=== PATIENT | female | born 2000 | race Caucasian/White ===

== ENCOUNTER → 2018-04-13 | Outpatient (CLI) | payer BC, OTHER ==
--- NOTE | 2018-04-13 14:18 | KCIC ---
MRI left foot without contrast dated 04/13/2018 1:15 PM Indication: Left foot pain history of sports injury 3 weeks ago pain located laterally at the midfoot. Comparison: No comparison is available. Technique: Routine multiplanar multisequence imaging performed. . Findings: There is a small focal zone of bone marrow edema in the posterior aspect of the talus, marginating the posterior subtalar joint. There is no osteochondral defect of the talar dome. No tibiotalar joint effusion or posterior subtalar joint effusion. There is a prominent os trigonum. Marrow signal is otherwise homogeneous. In particular, there is no edema at the lateral mid foot. No periostitis or bone destruction. There are mild hypertrophic changes of the talonavicular joint Peroneus longus and peroneus brevis tendons are grossly intact. Flexor and extensor tendons are intact. There is mild thickening of the flexor hallucis longus with fluid in the tendon sheath. There is mild edema within the sinus tarsi. Plantar fascia is intact. Medial and lateral ankle ligaments are grossly intact. IMPRESSION: 1. Bone marrow edema at the posterior talus with prominent os trigonum. Although there is no significant posterior capsular thickening, posterior ankle impingement syndrome cannot be excluded. 2. Mild tenosynovitis of the flexor hallicus longus. 3. Nonspecific edema within the sinus tarsi. Electronically signed by: Ortiz Stahl MD (04/13/2018 2:15 PM) [id number]
== END | disposition home or self-care (01) ==
LOC: KCIC MRI 10:21
PROVIDERS: ATTEND Orthopaedic Surgery
DX: M65.872 Other synovitis and tenosynovitis, left ankle and foot (principal); R60.0 Localized edema
CPT/HCPCS: 73718